=== PATIENT | male | born 1965 | race African-American/Black ===

== ENCOUNTER 2021-02-03 18:01 | Emergency (ER) | payer BC ==
[2021-02-03] MEDS ORDERED: ACETAMINOPHEN 500 MG TAB ONE (20:45)
[2021-02-03 21:02] LABS: Urine Blood 2+ (NEG); Urine Glucose NEGATIVE (NEG); Urine Protein 2+ (NEG); Urine Specific Gravity >1.030 (1.005-1.030); Urine pH 5.5 (5.0-7.0)
[2021-02-03 21:07] LABS: Urine Bacteria >50 /HPF (NONE SEEN)
--- NOTE | 2021-02-03 21:15 | RAD REPORT ---
EXAM DESCRIPTION: RAD - Chest Single View - 02/03/2021 8:34 pm CLINICAL HISTORY: COUGH Chest pain. COMPARISON: Chest Pa And Lat (2 Views) dated 05/26/2019; ABDOMEN 1 VIEW KUB dated 10/13/2015; CHEST PA AND LAT 2 VIEW dated 12/22/2014 FINDINGS: Portable technique limits examination quality. The lungs are grossly clear. The heart is normal in size. No displaced fractures. IMPRESSION: No acute intrathoracic process suspected.
[2021-02-03 21:51] LABS: SARS-COV-2 RT PCR NEGATIVE (NEGATIVE)
--- NOTE | 2021-02-03 21:59 | ER ---
Nurse's Notes [facility] Name: Timothy Wilcox Age: 55 yrs Sex: Male : 1965 Arrival Date: 02/03/2021 Time: 18:04 Bed 7 Private MD: Brando Saenz B Diagnosis: Urinary tract infection, site not specified Presentation: 02/03 18:11 Chief complaint: Patient states: Back pain, hot back area, SOB/cough for 3 days. ll1 Coronavirus screen: Client denies travel out of the [place] in the last 14 days. congestion, cough unrelated to allergies, difficulty breathing, fever, muscle pain, Client presents with at least one sign or symptom that may indicate coronavirus-19. Standard/surgical mask placed on the client. Ebola Screen: Patient denies travel to an Ebola-affected area in the 21 days before illness onset. Initial Sepsis Screen: Does the patient meet any 2 criteria? HR > 90 bpm. No. Patient's initial sepsis screen is negative. Does the patient have a suspected source of infection? Yes: Productive cough/pneumonia. Risk Assessment: Do you want to hurt yourself or someone else? Patient reports no desire to harm self or others. Onset of symptoms was January 31, 2021. 18:11 Method Of Arrival: Ambulatory 1 18:11 Acuity: NAGI 3 ll1 Triage Assessment: 20:00 Respiratory: Onset: The symptoms/episode began/occurred gradually, the patient reports wh symptoms have resolved. Historical: - Allergies: 18:14 No Known Drug Allergies; ll1 - PMHx: 18:14 chronic bronchitis; ll1 - PSHx: 18:14 Appendectomy; ll1 - Immunization history:: Flu vaccine is not up to date. - Social history:: Smoking status: Patient reports use of chewing tobacco. Patient denies any tobacco usage or history of. - Family history:: not pertinent. - Hospitalizations: : No recent hospitalization is reported. Screenin:00 Abuse screen: Denies threats or abuse. Denies injuries from another. Nutritional wh screening: No deficits noted. Tuberculosis screening: No symptoms or risk factors identified. Fall Risk None identified. Assessment: 20:00 General: Appears in no apparent distress. Behavior is calm, cooperative, appropriate wh for age. Pain: Complains of pain in back. Neuro: Level of Consciousness is awake, alert, obeys commands, Oriented to person, place, time, situation, Appropriate for age. Cardiovascular: Rhythm is regular. Cardiovascular: Heart tones S1 S2. Respiratory: Reports shortness of breath cough that is Airway is patent Respiratory effort is even, unlabored, Respiratory pattern is regular, symmetrical, Breath sounds are clear bilaterally. GI: Abdomen is flat, non-distended. : No signs and/or symptoms were reported regarding the genitourinary system. EENT: No signs and/or symptoms were reported regarding the EENT system. Derm: Skin is intact, is healthy with good turgor, Skin is pink, warm \T\ dry. normal. Musculoskeletal: Circulation, motion, and sensation intact. 21:10 Reassessment: Patient appears in no apparent distress at this time. No changes from previously documented assessment. Patient and/or family updated on plan of care and expected duration. Pain level reassessed. Patient is alert, oriented x 3, equal unlabored respirations, skin warm/dry/pink. 22:15 Reassessment: Patient appears in no apparent distress at this time. Patient and/or family updated on plan of care and expected duration. Pain level reassessed. Patient is alert, oriented x 3, equal unlabored respirations, skin warm/dry/pink. Vital Signs: 18:11 BP 135 / 102; Pulse 100; Resp 17; Temp 99.1; Pulse Ox 97% on R/A; Weight 90.72 kg; ll1 Height 5 ft. 7 in. (170.18 cm); Pain 5/10; 21:31 BP 130 / 89; Pulse 88; Resp 18; Pulse Ox 95% on R/A; oe 22:25 BP 122 / 89; Pulse 84; Resp 18; Pulse Ox 95% on R/A; wh 18:11 Body Mass Index 31.32 (90.72 kg, 170.18 cm) ll1 ED Course: 18:04 Patient arrived in ED. mr 18:04 Brando Saenz MD is Private Physician. mr 18:13 Triage completed. ll1 18:14 Arm band placed on. ll1 19:58 Tony Kim MD is Attending Physician. rn 20:00 Patient has correct armband on for positive identification. Bed in low position. Call light in reach. Side rails up X 1. Pulse ox on. NIBP on. 20:08 Habalo, Winsy, RN is Primary Nurse. 22:27 No provider procedures requiring assistance completed. Patient did not have IV access during this emergency room visit. Administered Medications: 20:39 Drug: Tylenol 1000 mg Route: PO; 22:29 Follow up: Response: No adverse reaction 21:37 CANCELLED (no IV): Cipro (ciprofloxacin) 400 mg 200 ml IVPB once over 60 mins rn 22:22 Drug: Cipro (ciprofloxacin) 500 mg Route: PO; 22:24 Follow up: Response: No adverse reaction Outcome: 21:59 Discharge ordered by . rn 22:27 Discharged to home ambulatory. 22:27 Condition: stable 22:27 Discharge instructions given to patient, Instructed on discharge instructions, follow up and referral plans. medication usage, POC Demonstrated understanding of instructions, follow-up care, medications, POC Prescriptions given X 1. 22:28 Patient left the ED. Addendum: 02/07/2021 16:42 Addendum: Culture Results: Positive urine culture. No further action required. Bacteria s v sensitive to prescribed antibiotic. Signatures: Jackie Cancino, RN TRACEE Tiana Dai Roman, MD MD rn Espinosa, Orlando oe Habalo, Winsy, RN RN wh Lewis, Lynsay, RN RN ll1
--- NOTE | 2021-02-03 21:59 | EDPHYS ---
Physician Documentation [facility] Name: Timothy Wilcox Age: 55 yrs Sex: Male : 1965 Arrival Date: 02/03/2021 Time: 18:04 Bed 7 Private MD: Brando Saenz B ED Physician Tony Kim HPI: 02/03 20:06 This 55 yrs old Black Male presents to ER via Ambulatory with complaints of cough, body rn aches, Fever. 20:06 The patient or guardian reports cough, flu symptoms, low-grade fever, myalgias. Onset: rn The symptoms/episode began/occurred 2 day(s) ago. Severity of symptoms: At their worst the symptoms were mild, in the emergency department the symptoms are unchanged. Modifying factors: The symptoms are alleviated by nothing, the symptoms are aggravated by nothing. Associated signs and symptoms: Pertinent positives: fever, rhinorrhea, Pertinent negatives: chest pain, diarrhea, vomiting. The patient has experienced a previous episode. The patient has not recently seen a physician. Reports fever, muscle aches, back pain, dark urine, cough, congestion, for 2 days. . Historical: - Allergies: 18:14 No Known Drug Allergies; ll1 - PMHx: 18:14 chronic bronchitis; ll1 - PSHx: 18:14 Appendectomy; ll1 - Immunization history:: Flu vaccine is not up to date. - Social history:: Smoking status: Patient reports use of chewing tobacco. Patient denies any tobacco usage or history of. - Family history:: not pertinent. - Hospitalizations: : No recent hospitalization is reported. ROS: 20:08 Constitutional: + fever and chills Eyes: Negative for injury, pain, redness, and rnp, ENT: + congestion Cardiovascular: Negative for chest pain, palpitations, and edema, Respiratory: + cough and mild sob Abdomen/GI: Negative for abdominal pain, nausea, vomiting, diarrhea, and constipation, Back: + back muscle aches : + dark urine MS/Extremity: Negative for injury and deformity, Skin: Negative for injury, rash, and discoloration, Neuro: Negative for headache, weakness, numbness, tingling, and seizure. 20:08 All other systems are negative. Exam: 20:08 Constitutional: This is a well developed, well nourished patient who is awake, alert, rn and in no acute distress. Ambulatory to room without diffiulty and assistance, eating peanut M\\T\\Ms. Head/Face: Normocephalic, atraumatic. Eyes: Periorbital areas with no swelling, redness, or edema. Cardiovascular: Regular rate and rhythm. No pulse deficits. Respiratory: Speaking full sentences. No increased work of breathing, no retractions or nasal flaring. Back: No spinal tenderness. No costovertebral tenderness. Full range of motion. Skin: Warm, dry MS/ Extremity: Pulses equal, no cyanosis. Neuro: Awake and alert, GCS 15, oriented to person, place, time, and situation. Vital Signs: 18:11 BP 135 / 102; Pulse 100; Resp 17; Temp 99.1; Pulse Ox 97% on R/A; Weight 90.72 kg; ll1 Height 5 ft. 7 in. (170.18 cm); Pain 5/10; 21:31 BP 130 / 89; Pulse 88; Resp 18; Pulse Ox 95% on R/A; oe 22:25 BP 122 / 89; Pulse 84; Resp 18; Pulse Ox 95% on R/A; wh 18:11 Body Mass Index 31.32 (90.72 kg, 170.18 cm) ll1 MDM: 19:58 Patient medically screened. rn 21:58 Differential Diagnosis: Bronchitis Upper Respiratory Infection Viral Syndrome Pneumonia rn Other UTI. Data reviewed: vital signs, nurses notes, lab test result(s), radiologic studies, and as a result, I will discharge patient. Counseling: I had a detailed discussion with the patient and/or guardian regarding: the historical points, exam findings, and any diagnostic results supporting the discharge/admit diagnosis, lab results, radiology results, the need for outpatient follow up, to return to the emergency department if symptoms worsen or persist or if there are any questions or concerns that arise at home. Response to treatment: the patient's symptoms have mildly improved after treatment, and as a result, I will discharge patient. Special discussion: I discussed with the patient/guardian in detail that at this point there is no indication for admission to the hospital. It is understood, however, that if the symptoms persist or worsen the patient needs to return immediately for re-evaluation. Based on the history and exam findings, there is no indication for further emergent testing or inpatient evaluation. I discussed with the patient/guardian the need to see the primary care provider for further evaluation of the symptoms. 02/03 20:06 Order name: Flu rn 02/03 20:06 Order name: COVID-19 : Document "Date of Symptom Onset" if Symptomatic. rn 02/03 20:07 Order name: Urine Microscopic Only rn 02/03 20:52 Order name: Urine Dipstick--Ancillary (enter results) [facility] 02/03 21:02 Order name: Urine Dipstick-Ancillary; Complete Time: 21:22 [facility] 02/03 21:08 Order name: Urine Microscopic Only; Complete Time: 21:22 [facility] 02/03 20:06 Order name: XRAY Chest (1 view) rn 02/03 21:08 Order name: Urine Culture [facility] 02/03 21:09 Order name: CORONAVIRUS [facility] 02/03 21:10 Order name: Influenza Screen (A [facility] 02/03 21:16 Order name: RAD; Complete Time: 21:22 [facility] 02/03 21:52 Order name: COVID-19/FLU A+B; Complete Time: 21:58 [facility] 02/03 20:07 Order name: Urine Dipstick-Ancillary (obtain specimen); Complete Time: 20:51 rn Administered Medications: 20:39 Drug: Tylenol 1000 mg Route: PO; 22:29 Follow up: Response: No adverse reaction 21:37 CANCELLED (no IV): Cipro (ciprofloxacin) 400 mg 200 ml IVPB once over 60 mins rn 22:22 Drug: Cipro (ciprofloxacin) 500 mg Route: PO; 22:24 Follow up: Response: No adverse reaction Disposition: 02/03/21 21:59 Discharged to Home. Impression: Urinary tract infection, site not specified. - Condition is Stable. - Discharge Instructions: Urinary Tract Infection, Adult. - Prescriptions for Cipro 500 mg Oral Tablet - take 1 tablet by ORAL route every 12 hours for 10 days; 20 tablet. - Medication Reconciliation Form, Thank You Letter, Antibiotic Education, Prescription Opioid Use form. - Follow up: Private Physician; When: As needed; Reason: Recheck today's complaints, Re-evaluation by your physician. - Problem is new. - Symptoms have improved. Signatures: Dispatcher [facility] Tony Kim MD MD rn Habalo, Winsy, RN RN wh Lewis, Lynsay RN RN ll1 Corrections: (The following items were deleted from the chart) 21:37 21:35 Cipro (ciprofloxacin) 400 mg 200 ml IVPB once over 60 mins ordered. aamir rutledge 22:28 21:59 02/03/2021 21:59 Discharged to Home. Impression: Urinary tract infection, site wh not specified. Condition is Stable. Forms are Medication Reconciliation Form, Thank You Letter, Antibiotic Education, Prescription Opioid Use. Follow up: Private Physician; When: As needed; Reason: Recheck today's complaints, Re-evaluation by your physician. Problem is new. Symptoms have improved. rn
[2021-02-03] MEDS ORDERED: CIPROFLOXACIN HCL 500 MG TAB ONE (22:38)
[2021-02-03 23:06] VITALS: TEMP 99.1
[2021-02-03 23:07] VITALS: O2SAT 95
[2021-02-03 23:08] VITALS: BP 122/89
== END 2021-02-03 22:28 | disposition home or self-care (01) ==
LOC: ER 18:01
DX: N39.0 Urinary tract infection, site not specified (principal); Z20.822 Contact with and (suspected) exposure to COVID-19; F17.220 Nicotine dependence, chewing tobacco, uncomplicated
CPT/HCPCS: 87088; 87086; 0240U; 71045; 81003; 81015; 87077; 87186; 99283

== ENCOUNTER 2022-11-19 12:36 | Emergency (ER) | payer BC ==
--- NOTE | 2022-11-19 14:44 | RAD REPORT ---
EXAM DESCRIPTION: RAD - Chest Single View - 11/19/2022 2:36 pm CLINICAL HISTORY: CHEST PAIN COMPARISON: Chest Single View dated 02/03/2021; Chest Pa And Lat (2 Views) dated 05/26/2019; ABDOMEN 1 VIEW KUB dated 10/13/2015; CHEST PA AND LAT 2 VIEW dated 12/22/2014 FINDINGS: Lines: None. Lungs: No evidence of edema or pneumonia. Pleural: No significant pleural effusions or pneumothorax. Cardiac: Mild cardiomegaly. Mediastinum: Within normal limits. Bones: No acute fractures. Other: None IMPRESSION: No acute cardiopulmonary disease.
--- NOTE | 2022-11-19 14:54 | RAD REPORT ---
EXAM DESCRIPTION: RAD - Hand Right 3 View - 11/19/2022 2:36 pm CLINICAL HISTORY: hand pain COMPARISON: No comparisons FINDINGS/IMPRESSION: No acute fracture. No malalignment. No significant focal degenerative changes.
[2022-11-19 15:16] LABS: Absolute Lymphocytes (CBC) 2.9 K/uL (0.7-4.9); Hematocrit 39.5 % (39.6-49.0); Lymphocytes % 32.5 % (15.3-44.8); MCV 84.8 fL (80-100); MPV 8.7 fL (7.6-11.3); RBC Red Blood Cell Count 4.66 M/uL (4.33-5.43)
[2022-11-19 15:34] LABS: Troponin High Sensitivity 5.7 pg/mL (<58.9)
[2022-11-19 15:35] LABS: Potassium 3.8 mmol/L (3.5-5.1)
--- NOTE | 2022-11-19 17:26 | RAD REPORT ---
EXAM DESCRIPTION: CT - Chest For Pe Angio - 11/19/2022 5:11 pm CLINICAL HISTORY: chest pain, dizziness, elevated d-dimer COMPARISON: No comparisons TECHNIQUE: Dynamically enhanced axial 3 mm thick images of the chest were obtained during administra tion of <100> mL Isovue 370 IV contrast. Coronal and oblique reconstruction images were generated and reviewed. Exam utilizes a protocol for optimal evaluation of pulmonary arterial tree. Maximum intensity projections 3D imaging was utilized All CT scans are performed using dose optimization technique as appropriate and may include automated exposure control or mA/KV adjustment according to patient size. FINDINGS: Chest Wall: No suspicious thyroid nodules or pathologic lymphadenopathy. Lungs: No acute abnormality. Subpleural nodules along the left oblique fissure consistent with perifi ssural lymph nodes. Pleura: No significant effusions or pneumothorax. Mediastinum/amrit: No pathologic lymphadenopathy. Pulmonary arteries/Aorta: No filling defect identified. No aortic aneurysm. Heart: No significant pericardial effusion. Normal heart size. Upper abdomen: No acute abnormality. Bones: No acute abnormality. IMPRESSION: Negative for pulmonary embolism. Low lung volumes but otherwise no acute process identif ied.
--- NOTE | 2022-11-19 17:27 | RAD REPORT ---
EXAM DESCRIPTION: CT - Head Brain Wo Cont - 11/19/2022 5:11 pm CLINICAL HISTORY: dizziness COMPARISON: No comparisons TECHNIQUE: All CT scans are performed using dose optimization technique as appropriate and may inclu de automated exposure control or mA/KV adjustment according to patient size. FINDINGS: No intracranial hemorrhage, hydrocephalus or extra-axial fluid collection.No areas of brai n edema or evidence of midline shift. The paranasal sinuses and mastoids are clear. The calvarium is intact. IMPRESSION: No acute intracranial abnormality.
--- NOTE | 2022-11-19 18:10 | RAD REPORT ---
EXAM DESCRIPTION: MRI - Brain Wo Cont - 11/19/2022 5:46 pm CLINICAL HISTORY: dizziness COMPARISON: No comparisons TECHNIQUE: Sagittal T1-weighted images were obtained along with PD/heavily T2-weighted and T2-FLAIR images. Axial DWI and ADC mapping sequences were also obtained along with coronal heavily T2-weighted images were obtained. FINDINGS: No intracranial hemorrhage, mass or acute infarction. There is no edema or shift of midlin e structures. No extra-axial fluid collections. Signal voids are seen as a normal finding in the nel r intracranial vessels. No significant white matter disease. Mild ethmoid air cell thickening. IMPRESSION: No acute intracranial abnormality. Mild paranasal sinus inflammatory disease. .
--- NOTE | 2022-11-19 18:16 | EDPHYS ---
Physician Documentation [facility] Name: Timothy Wilcox Age: 57 yrs Sex: Male : 1965 Arrival Date: 11/19/2022 Time: 12:39 Bed 6 Private MD: FAVIOLA Physician Hossein Canas HPI: 11/19 13:02 This 57 yrs old Black Male presents to ER via Ambulatory with complaints of Chest Pain, jmm Hand Pain. 13:02 Onset: gradually, 2 year(s) ago. This is a 57-year-old male with history of chronic jmm bronchitis the presents emerged department with complaints of 2 years of episodic chest pain. Patient also states that he had a 3-day episode of dizziness worsen with change in position, patient states that it felt as if he was drunk while laying down. That has now resolved. Patient also complains of bilateral hand pain with pain when attempting to squeeze into fists this has been going for weeks. Denies any fever, abdominal pain. 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 Historical: - Allergies: 12:48 No Known Drug Allergies; ll1 - PMHx: 12:48 chronic bronchitis; Gout; ll1 - PSHx: 12:48 None; ll1 - Immunization history:: Client reports receiving the 2nd dose of the Covid vaccine. - Social history:: Smoking status: Patient reports the use of cigarette tobacco products, cigars. ROS: 13:02 Constitutional: Negative for fever, chills, and weight loss. jmm 13:02 Cardiovascular: Positive for chest pain. 13:02 MS/extremity: Positive for pain. 13:02 Neuro: Positive for dizziness. 13:02 All other systems are negative. Exam: 13:02 Constitutional: This is a well developed, well nourished patient who is awake, alert, jmm and in no acute distress. Head/Face: atraumatic. Eyes: EOMI, no conjunctival erythema appreciated ENT: Moist Mucus Membranes Neck: Trachea midline, Supple Chest/axilla: Normal chest wall appearance and motion. 13:02 Cardiovascular: Rate: normal, Rhythm: regular. 13:02 Respiratory: the patient does not display signs of respiratory distress, Respirations: normal, Breath sounds: are clear throughout. 13:02 Abdomen/GI: Inspection: abdomen appears normal, Bowel sounds: normal, Palpation: abdomen is soft and non-tender, in all quadrants. 13:02 Back: ROM is normal. 13:02 Musculoskeletal/extremity: ROM: intact in all extremities, Full range of motion noted to both hands, less than 2-second distal cap refill bilaterally, full radial pulse bilaterally, compartments are soft bilaterally, neurovascular intact bilaterally. 13:02 Skin: Appearance: Color: normal in color. 13:02 Neuro: Orientation: is normal, Mentation: is normal, Memory: is normal, Cerebellar function: normal finger to nose testing, heel to minaya testing is normal, Gait: is steady. 13:02 Psych: Behavior/mood is pleasant, cooperative. Vital Signs: 12:49 BP 125 / 91; Pulse 80; Resp 16; Temp 98.7; Pulse Ox 100% on R/A; Weight 88 kg; Height 5 iw ft. 7 in. (170.18 cm); Pain 0/10; 15:01 BP 126 / 92; Pulse 78; Resp 18; Pulse Ox 100% on R/A; Pain 8/10; ld1 16:04 BP 139 / 98; Pulse 81; Resp 18; Pulse Ox 100% on R/A; ld1 17:56 BP 138 / 99; Pulse 66; Resp 18; Pulse Ox 100% on R/A; ld1 18:23 BP 135 / 94; Pulse 69; Resp 18; Pulse Ox 100% on R/A; Pain 0/10; ld1 12:49 Body Mass Index 30.39 (88.00 kg, 170.18 cm) iw MDM: 13:39 Patient medically screened. [facility] 18:14 Data reviewed: vital signs, nurses notes. Counseling: I had a detailed discussion with killian the patient and/or guardian regarding: the historical points, exam findings, and any diagnostic results supporting the discharge/admit diagnosis, the need for outpatient follow up, to return to the emergency department if symptoms worsen or persist or if there are any questions or concerns that arise at home. 21:16 ED course: Imaging studies are negative. Labs are unremarkable. Patient advised to killian follow with his PCP for further evaluation otherwise given strict return precautions. Patient understood agrees plan of care.. 11/19 13:30 Order name: Basic Metabolic Panel; Complete Time: 15:36 [facility] 11/19 13:30 Order name: CBC with Diff; Complete Time: 15:23 [facility] 11/19 13:30 Order name: Troponin HS; Complete Time: 15:36 [facility] 11/19 13:30 Order name: XRAY Chest (1 view); Complete Time: 14:48 [facility] 11/19 13:30 Order name: D-Dimer; Complete Time: 15:23 [facility] 11/19 13:31 Order name: Hand Right 3 View XRAY; Complete Time: 14:56 [facility] 11/19 13:02 Order name: EKG; Complete Time: 13:02 [facility] 11/19 13:02 Order name: EKG - Nurse/Tech; Complete Time: 13:02 1 11/19 13:30 Order name: Cardiac monitoring; Complete Time: 15:01 [facility] 11/19 13:31 Order name: Hand Left 3 View XRAY; Complete Time: 14:57 [facility] 11/19 15:37 Order name: CT Head Brain wo Cont; Complete Time: 17:42 [facility] 11/19 15:38 Order name: CT Chest For PE Angio; Complete Time: 17:42 [facility] 11/19 15:38 Order name: MRI - Brain Wo Cont; Complete Time: 18:11 [facility] 11/19 13:30 Order name: EKG - Nurse/Tech; Complete Time: 13:33 [facility] 11/19 13:30 Order name: IV Saline Lock; Complete Time: 15:01 [facility] 11/19 13:30 Order name: Labs collected and sent; Complete Time: 15:01 [facility] 11/19 13:30 Order name: O2 Per Protocol; Complete Time: 14:37 [facility] 11/19 13:30 Order name: O2 Sat Monitoring; Complete Time: 14:37 [facility] Administered Medications: No medications were administered Disposition Summary: 11/19/22 18:15 Discharge Ordered Location: Home jmm Condition: Stable jmm Diagnosis - Pain in left hand jmm - Pain in right hand jmm - Chest pain, unspecified jmm - Dizziness and giddiness jmm Followup: jmm - With: Private Physician - When: 2 - 3 days - Reason: Recheck today's complaints, Continuance of care, Re-evaluation by your physician Discharge Instructions: - Discharge Summary Sheet jmm - Nonspecific Chest Pain, Adult jmm - Dizziness jmm - Vertigo jmm Forms: - Medication Reconciliation Form jmm - Thank You Letter jmm - Antibiotic Education jmm - Prescription Opioid Use jmm Prescriptions: - Meclizine 25 mg Oral Tablet - take 1 tablet by ORAL route every 8 hours As needed; 30 tablet; Refills: 0, [facility] Product Selection Permitted - Diclofenac Sodium 75 mg Oral Tablet Sustained Release - take 1 tablet by ORAL route 2 times per day; 30 tablet; Refills: 0, Product [facility] Selection Permitted Signatures: Dispatcher [employer] Ashkan Edwards PA PA jmm Lewis, Lynsay RN RN ll1
--- NOTE | 2022-11-19 18:16 | ER ---
Nurse's Notes [facility] Name: Timothy Wilcox Age: 57 yrs Sex: Male : 1965 Arrival Date: 11/19/2022 Time: 12:39 Bed 6 Private MD: Diagnosis: Pain in left hand;Pain in right hand;Chest pain, unspecified;Dizziness and giddiness Presentation: 11/19 12:49 Chief complaint: Patient states: L CP off/on for 2 years. Had 1 day of dizziness 1 week ll1 ago. Bilateral hand pains and joints "get stuck" in the mornings for 3+ months. Coronavirus screen: Vaccine status: Patient reports receiving the 2nd dose of the covid vaccine. Client denies travel out of the [place] in the last 14 days. At this time, the client does not indicate any symptoms associated with coronavirus-19. Ebola Screen: Patient denies travel to an Ebola-affected area in the 21 days before illness onset. Initial Sepsis Screen: Does the patient meet any 2 criteria? No. Patient's initial sepsis screen is negative. Does the patient have a suspected source of infection? No. Patient's initial sepsis screen is negative. Risk Assessment: Do you want to hurt yourself or someone else? Patient reports no desire to harm self or others. Onset of symptoms was August 20, 2022. 12:49 Method Of Arrival: Ambulatory ll1 12:49 Acuity: NAGI 3 ll1 Triage Assessment: 12:52 General: Appears in no apparent distress. Behavior is calm, cooperative, appropriate ll1 for age. Pain: Complains of pain in right hand and left hand Quality of pain is described as aching. Neuro: No deficits noted. Cardiovascular: Reports chest pain. Musculoskeletal: Circulation, motion, and sensation intact. Capillary refill < 3 seconds, Reports pain in right hand and left hand. Historical: - Allergies: 12:48 No Known Drug Allergies; ll1 - PMHx: 12:48 chronic bronchitis; Gout; ll1 - PSHx: 12:48 None; ll1 - Immunization history:: Client reports receiving the 2nd dose of the Covid vaccine. - Social history:: Smoking status: Patient reports the use of cigarette tobacco products, cigars. Screenin:01 [facility] ED Fall Risk Assessment (Adult) History of falling in the last 3 months, ld1 including since admission No falls in past 3 months (0 pts) Confusion or Disorientation No (0 pts) Intoxicated or Sedated No (0 pts) Impaired Gait No (0 pts). Abuse screen: Denies threats or abuse. Denies injuries from another. Nutritional screening: No deficits noted. Tuberculosis screening: No symptoms or risk factors identified. Assessment: 15:01 General: Appears in no apparent distress. comfortable, Behavior is calm, cooperative, ld1 appropriate for age. Pain: Complains of pain in chest and left hand and right hand Pain does not radiate. Pain currently is 8 out of 10 on a pain scale. Quality of pain is described as throbbing, Pain began suddenly. Neuro: Level of Consciousness is awake, alert, obeys commands, Oriented to person, place, time, situation. Cardiovascular: Capillary refill < 3 seconds Patient's skin is warm and dry. Respiratory: Airway is patent Respiratory effort is even, unlabored. GI: Abdomen is flat, non-distended. : No signs and/or symptoms were reported regarding the genitourinary system. EENT: No signs and/or symptoms were reported regarding the EENT system. Derm: No signs and/or symptoms reported regarding the dermatologic system. Musculoskeletal: No signs and/or symptoms reported regarding the musculoskeletal system. 17:56 Reassessment: Patient appears in no apparent distress at this time. No changes from ld1 previously documented assessment. Patient and/or family updated on plan of care and expected duration. Pain level reassessed. Patient is alert, oriented x 3, equal unlabored respirations, skin warm/dry/pink. 18:23 Reassessment: Patient appears in no apparent distress at this time. Patient and/or ld1 family updated on plan of care and expected duration. Pain level reassessed. Patient is alert, oriented x 3, equal unlabored respirations, skin warm/dry/pink. Vital Signs: 12:49 BP 125 / 91; Pulse 80; Resp 16; Temp 98.7; Pulse Ox 100% on R/A; Weight 88 kg; Height 5 iw ft. 7 in. (170.18 cm); Pain 0/10; 15:01 BP 126 / 92; Pulse 78; Resp 18; Pulse Ox 100% on R/A; Pain 8/10; ld1 16:04 BP 139 / 98; Pulse 81; Resp 18; Pulse Ox 100% on R/A; ld1 17:56 BP 138 / 99; Pulse 66; Resp 18; Pulse Ox 100% on R/A; ld1 18:23 BP 135 / 94; Pulse 69; Resp 18; Pulse Ox 100% on R/A; Pain 0/10; ld1 12:49 Body Mass Index 30.39 (88.00 kg, 170.18 cm) iw ED Course: 12:39 Patient arrived in ED. rg4 12:52 Triage completed. ll1 12:52 Arm band placed on. ll1 13:29 Ashkan Andersen PA is PHCP. jmm 13:29 Hossein Canas MD is Attending Physician. jmm 13:33 EKG done, by ED staff. bc6 14:36 Donna Rhoades, RN is Primary Nurse. ld1 14:38 XRAY Chest (1 view) In Process Unspecified. EDMS 14:38 Hand Right 3 View XRAY In Process Unspecified. EDMS 14:38 Hand Left 3 View XRAY In Process Unspecified. EDMS 15:01 Patient has correct armband on for positive identification. Placed in gown. Bed in low ld1 position. Call light in reach. Side rails up X2. software design analyst on. Pulse ox on. NIBP on. Door closed. Noise minimized. Warm blanket given. 15:01 No provider procedures requiring assistance completed. Inserted saline lock: 20 gauge ld1 in right antecubital area, using aseptic technique. Blood collected. Patient maintains SpO2 saturation greater than 95% on room air. 17:13 CT Head Brain wo Cont In Process Unspecified. EDMS 17:13 CT Chest For PE Angio In Process Unspecified. EDMS 17:46 MRI - Brain Wo Cont In Process Unspecified. EDMS 18:24 IV discontinued, intact, bleeding controlled, No redness/swelling at site. ld1 Administered Medications: No medications were administered Medication: 15:01 VIS not applicable for this client. ld1 Outcome: 18:15 Discharge ordered by . jmm 18:23 Discharged to home ambulatory, with family. ld1 18:23 Condition: stable 18:23 Discharge instructions given to patient, family, Instructed on discharge instructions, follow up and referral plans. medication usage, Demonstrated understanding of instructions, follow-up care, medications, Prescriptions given X 2. 18:24 Patient left the ED. ld1 Signatures: Dispatcher [employer] EDMS Ashkan Andersen PA PA jmm Williams, Irene, RN RN Pamela Oneal rg4 Charu Bhagat RN RN ll1 Donna Rhoades RN RN ld1 Karina De La Fuente bc6 Corrections: (The following items were deleted from the chart) 13:21 12:49 BP 125 / 91; Pulse 80bpm; Resp 16bpm; Pulse Ox 100% RA; 88 kg; Height 5 ft. 7 iw in.; BMI: 30.3; Pain 0/10; ll1
[2022-11-19 18:34] VITALS: TEMP 98.7; O2SAT 100
[2022-11-19 18:39] VITALS: BP 135/94
--- NOTE | 2022-11-21 17:52 | EKG ---
Test Date: 2022-11-19 Test Time: 13:07:38 Ethnology Professor: SUNG MEASUREMENT RESULTS: Intervals: Rate: 73 MO: 178 QRSD: 68 QT: 360 QTc: 396 [place]: P: 22 MO: 178 QRS: 42 T: 50 INTERPRETIVE STATEMENTS: Normal sinus rhythm Normal ECG Compared to ECG 12/22/2014 07:08:55 Early repolarization no longer present Electronically Signed On 11-21-22 17:46:20 TRACK EQUIPMENT OPERATOR by Jaswinder Samaniego
== END 2022-11-19 18:24 | disposition home or self-care (01) ==
LOC: ER 12:36
DX: R07.89 Other chest pain (principal); M79.642 Pain in left hand; M79.641 Pain in right hand; R42 Dizziness and giddiness; F17.290 Nicotine dependence, other tobacco product, uncomplicated
CPT/HCPCS: 93005; 85025; 80048; 36415; 85379; 84484; 70450; 71275; 71045; 73130 ×2; 70551; 99285; Q9967